=== PATIENT | female | born 1990 | race Two or more races ===

== ENCOUNTER 2018-07-27 18:37 | Emergency (ER) | payer OTHER ==
[~2018-07-27] VITALS: Ht 157.5 cm; Wt 72.6 kg
[~2018-07-27 18:37] MED LIST: [UNRECOGNIZED DRUG - REMARK]
== END 2018-07-28 00:43 | disposition home or self-care (01) ==
LOC: ER 18:37
DX: O26.891 Other specified pregnancy related conditions, first trimester (principal); K52.9 Noninfective gastroenteritis and colitis, unspecified; Z34.01 Encounter for supervision of normal first pregnancy, first trimester

== ENCOUNTER 2020-05-04 16:53 | Outpatient (CLI) | payer OTHER | END 2020-05-04 18:00 | disposition home or self-care (01) | LOC: LAB 16:53 | PROVIDERS: ATTEND Emergency Medicine Pediatric Emergency Medicine | DX: Z03.818 Encounter for observation for suspected exposure to other biological agents ruled out (principal) ==

== ENCOUNTER → 2020-08-31 06:46 | Outpatient (CLI) | payer OTHER ==
[~2020-08-31 06:46] MED LIST changes: +TUSSIN DM SYRU118 ML PO; +ZITHROMAX TRI-500 MG PO
== END | disposition home or self-care (01) ==
LOC: LAB 06:46
PROVIDERS: ATTEND Obstetrics & Gynecology
DX: E78.49 Other hyperlipidemia (principal); E55.9 Vitamin D deficiency, unspecified; E09.69 Drug or chemical induced diabetes mellitus with other specified complication; N73.8 Other specified female pelvic inflammatory diseases; Z11.3 Encounter for screening for infections with a predominantly sexual mode of transmission

== ENCOUNTER 2020-09-05 11:43 | Emergency (ER) | payer OTHER ==
[~2020-09-05] VITALS: Ht 154.9 cm; Wt 84.8 kg
[~2020-09-05 11:43] MED LIST changes: -TUSSIN DM SYRU118 ML PO; -ZITHROMAX TRI-500 MG PO
[2020-09-05] MEDS ORDERED: TUSSIN DM SYRU118 ML PO (16:15)
[2020-09-05] MEDS ORDERED: ZITHROMAX TRI-500 MG PO (16:15)
== END 2020-09-05 16:41 | disposition home or self-care (01) ==
LOC: ER 11:43
DX: B34.9 Viral infection, unspecified (principal)

== ENCOUNTER 2020-09-19 09:13 | Outpatient (CLI) | payer OTHER ==
[~2020-09-19 09:13] MED LIST changes: +TUSSIN DM SYRU118 ML PO; +ZITHROMAX TRI-500 MG PO
== END 2020-09-19 09:16 | disposition home or self-care (01) ==
LOC: SONOGRAMA 09:13
PROVIDERS: ATTEND Obstetrics & Gynecology
DX: R59.0 Localized enlarged lymph nodes (principal)

== ENCOUNTER 2020-09-19 15:30 | Outpatient (CLI) | payer OTHER | END 2020-09-19 15:36 | disposition home or self-care (01) | LOC: LAB 15:30 | PROVIDERS: ATTEND Radiology Diagnostic Radiology | DX: B19.9 Unspecified viral hepatitis without hepatic coma (principal); B02.9 Zoster without complications ==

== ENCOUNTER 2020-12-25 08:03 | Outpatient (CLI) | payer OTHER | END 2020-12-25 09:09 | disposition home or self-care (01) | LOC: RAD 08:03 | PROVIDERS: ATTEND Internal Medicine Pulmonary Disease | DX: J45.31 Mild persistent asthma with (acute) exacerbation (principal); R07.89 Other chest pain ==

== ENCOUNTER 2021-03-19 08:11 | Outpatient (CLI) | payer OTHER | END 2021-03-19 08:17 | disposition home or self-care (01) | LOC: RAD 08:11 | PROVIDERS: ATTEND Chiropractor | DX: M99.01 Segmental and somatic dysfunction of cervical region (principal); M99.02 Segmental and somatic dysfunction of thoracic region; M99.03 Segmental and somatic dysfunction of lumbar region ==

== ENCOUNTER 2021-03-19 11:27 | Outpatient (CLI) | payer OTHER | END 2021-03-19 12:27 | disposition home or self-care (01) | LOC: PPH VACUNA | DX: Z23 Encounter for immunization (principal) ==

== ENCOUNTER → 2021-04-01 11:43 | Outpatient (CLI) | payer OTHER | END | disposition home or self-care (01) | LOC: NUCLEAR 11:43 | PROVIDERS: ATTEND Surgery | DX: M85.80 Other specified disorders of bone density and structure, unspecified site (principal); M81.0 Age-related osteoporosis without current pathological fracture ==